=== PATIENT | female | born 1960 | race Caucasian/White ===

== ENCOUNTER 2020-12-29 12:22 | Emergency (ER) | payer OTHER ==
[2020-12-29] MEDS ORDERED: diphenhydrAMINE 50 MG/ML SDV IM ONE (12:33)
[2020-12-29] MEDS ORDERED: methylPREDNISolone Sodium Succinate 125 MG/2 ML SDV IM ONE (12:33)
[2020-12-29] MEDS ORDERED: EPINEPHrine 1 MG/ML SDV IM ONE (12:34)
--- NOTE | 2020-12-29 13:44 | EDM.PDOC ---
Scribed by Vicki Hope 12/29/20 1253 for Mikel Christensen MD ED HPI GENERAL MEDICAL PROBLEM - General Chief Complaint: Bite:Animal, Insect Stated Complaint: ALLERGIC REACTION TO BEE STING [phone] Time Seen by Provider: 12/29/20 12:30 Source of Information: Reports: Patient, RN, RN Notes Reviewed History Limitations: Reports: No Limitations - History of Present Illness INITIAL COMMENTS - FREE TEXT/NARRATIVE: Patient presents to ED by POV stating she was stung this morning on the right cheek. She suddenly began to swell right face and right lower lip. She denies difficulty wheezing, or any other respiratory symptoms. Denies rash or hives to any area other than the right face. Onset: Today, Sudden Duration: Constant Location: Reports: Face Quality: Reports: Throbbing Severity: Moderate Improves with: Reports: None Worsens with: Reports: None Associated Symptoms: Reports: No Other Symptoms Right Face/Facial Pain Score (Numeric/FACES): 8 - Related Data Allergies Allergy/AdvReac Type Severity Reaction Status Date / Time Penicillins Allergy Swelling Verified 12/29/20 13:01 Sulfa (Sulfonamide Allergy Swelling Verified 12/29/20 13:01 Antibiotics) bee Allergy Swelling Uncoded 12/29/20 13:01 Home Meds: Home Meds . 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 ED EXAM, ANIMAL BITE - Physical Exam Exam: See Below Exam Limited By: No Limitations General Appearance: Alert, WD/WN, No Apparent Distress, Anxious Eye Exam: Bilateral Eye: EOMI, Normal Inspection, PERRL Ears: Normal External Exam Nose: Normal Inspection, Normal Mucosa, No Blood Throat/Mouth: Normal Teeth, Normal Gums, Normal Oropharynx, Normal Voice, No Airway Compromise, Other (Right lower lip swelling) Head: Atraumatic, Facial Swelling (Right face overlying mandible from the angle to the chin) Neck: Normal Inspection, Supple, Non-Tender, Full Range of Motion Respiratory/Chest: No Respiratory Distress, Lungs Clear, Normal Breath Sounds, No Accessory Muscle Use, Chest Non-Tender Cardiovascular: Normal Peripheral Pulses, Regular Rate, Rhythm, No Edema, No Gallop, No JVD, No Murmur, No Rub GI/Abdominal: Normal Bowel Sounds, Soft, Non-Tender, No Organomegaly, No Distention, No Abnormal Bruit, No Mass (Female) Exam: Deferred Rectal (Female) Exam: Deferred Back Exam: Normal Inspection Extremities: Normal Inspection, Normal Range of Motion, Non-Tender, Normal Capillary Refill, No Pedal Edema Neurological: Alert, Oriented, CN II-XII Intact, Normal Cognition, Normal Gait, No Motor/Sensory Deficits Psychiatric: Normal Affect, Normal Mood Skin Exam: Warm/Dry, DRY, I, Normal Color, NR Course - Vital Signs Last Recorded V/S: Last Vital Signs Temp Pulse 73 12/29/20 12:30 Resp 14 12/29/20 12:30 BP 181/102 H 12/29/20 12:30 Pulse Ox - Orders/Labs/Meds Meds: Medications Discontinued Medications Generic Name Dose Route Start Last Admin Trade Name Benjamin PRN Reason Stop Dose Admin Diphenhydramine HCl 50 mg 12/29/20 12:33 12/29/20 12:45 Diphenhydramine 50 Mg/Ml Sdv IM 12/29/20 12:34 50 mg ONETIME ONE Administration Epinephrine HCl 0.3 mg 12/29/20 12:34 12/29/20 12:43 Epinephrine 1 Mg/Ml Sdv IM 12/29/20 12:35 0.3 mg ONETIME ONE Administration Methylprednisolone Sodium Succinate 125 mg 12/29/20 12:33 12/29/20 12:46 Methylprednisolone Sodium Succinate 125 Mg/2 Ml Sdv IM 12/29/20 12:34 125 mg ONETIME ONE Administration - Re-Assessments/Exams Free Text/Narrative Re-Assessment/Exam: 12/29/20 13:50 Pt improved. She would like to go home. Departure - Departure Time of Disposition: 13:43 Disposition: Home, Self-Care 01 Condition: Good Clinical Impression: Allergic reaction to bee sting - Discharge Information *PRESCRIPTION DRUG MONITORING PROGRAM REVIEWED*: Not Applicable *COPY OF PRESCRIPTION DRUG MONITORING REPORT IN PATIENT ALICE: Not Applicable Instructions: Anaphylactic Reaction, Adult, [id number], Bee, Wasp, or Hornet Sting, Adult Forms: ED Department Discharge Additional Instructions: Rx: Prednisone 20mg Rx: Zyrtec 10mg Use your Epi-Pen at the first sign of allergic reaction. Do NOT wait for respiratory distress to occur before using your Epi-Pen. Return to ER if symptoms are worse at any time. Sepsis Event Note (ED) - Focused Exam Vital Signs: Vital Signs Pulse Resp BP 12/29/20 12:30 73 14 181/102 H I have read and agree with the documentation that has been completed regarding this visit. By signing this record, I attest that the documentation was completed in my physical presence and is an accurate record of the encounter.
== END 2020-12-29 13:54 | disposition home or self-care (01) ==
LOC: DL.ED 12:22
DX: T63.441A Toxic effect of venom of bees, accidental (unintentional), initial encounter (principal); Z88.0 Allergy status to penicillin; Z88.2 Allergy status to sulfonamides; Z91.030 Bee allergy status
CPT/HCPCS: 96372; 99282; J0171; J1200; J2930